=== PATIENT | female | born 1980 | race Caucasian/White ===

== ENCOUNTER 2016-06-21 09:05 | Inpatient (IN) | payer MEDICAID ==
[~2016-06-21] VITALS: Ht 170.2 cm; Wt 138.0 kg
[2016-06-24] MEDS ORDERED: OXYTOCIN 30U/ 0.9% NaCL 500ML 500 ML IV ONE (07:30)
[2016-06-24] MEDS ORDERED: NEWBORN KIT ONE (07:30)
[2016-06-24] MEDS ORDERED: D5%-LACTATED RINGERS 1,000 ML IV SCH (07:30)
[2016-06-24] MEDS ORDERED: LACTATED RINGERS 1,000 ML IV SCH (07:30)
[2016-06-24 07:37] VITALS: BP 128/69
[2016-06-24] MEDS ORDERED: MISOPROSTOL 25 MCG TABLET ONE ×3 (08:17→16:57)
[2016-06-24 08:18] LABS: HEMOGLOBIN 11.4 g/dL (11.7-16.4)
[2016-06-24] MEDS: MISOPROSTOL 25 MCG TABLET VG PRN ×3 (08:20→17:01)
== END 2016-06-24 22:00 | disposition home or self-care (01) | DRG 782 ==
LOC: LDIP 06-24 06:35
PROVIDERS: ADMIT Specialist; ATTEND Specialist
PROC: 3E0P7GC Introduction of Other Therapeutic Substance into Female Reproductive, Via Natural or Artificial Opening (ICD-10-PCS; principal; 2016-06-24)
DX: O48.0 Post-term pregnancy (principal); Z68.42 Body mass index [BMI] 45.0-49.9, adult; E66.9 Obesity, unspecified; O99.213 Obesity complicating pregnancy, third trimester; Z3A.40 40 weeks gestation of pregnancy; O09.523 Supervision of elderly multigravida, third trimester; Z87.440 Personal history of urinary (tract) infections
CPT/HCPCS: 36415; 85025; 86850; 86900; J7120

== ENCOUNTER 2018-05-27 06:28 | Inpatient (IN) | payer MEDICAID ==
[~2018-05-27] VITALS: Ht 170.2 cm; Wt 156.4 kg
[~2018-05-27 06:28] MED LIST: IBUP-1222 PO; PREN1TAB60 PO
[2018-05-27] MEDS ORDERED: NEWBORN KIT ONE ×2 (06:35→09:01)
[2018-05-27] MEDS ORDERED: D5%-LACTATED RINGERS 1,000 ML IV SCH (07:03)
[2018-05-27] MEDS ORDERED: OXYTOCIN 30U/ 0.9% NaCL 500ML 500 ML IV ONE (07:03)
[2018-05-27] MEDS: LACTATED RINGERS 1,000 ML IV SCH (07:24)
[2018-05-27] MEDS ORDERED: FENTANYL PF 100 MCG/2ML IVPush PRN (07:30)
[2018-05-27] MEDS ORDERED: FENTANYL PF 100 MCG/2ML IV PRN (07:30)
[2018-05-27] MEDS ORDERED: ONDANSETRON 2MG/ML, 2ML IVPush PRN (07:30)
[2018-05-27] MEDS ORDERED: TERBUTALINE 1 MG/ML, 1ML IVPush PRN (07:30)
[2018-05-27 07:41] LABS: BASOPHILS # (AUTO) 0.01 x10^3/uL (0-0.1); BASOPHILS % (AUTO) 0 % (0-1); EOSINOPHILS # (AUTO) 0.08 x10^3/uL (0-0.4); EOSINOPHILS % (AUTO) 1 % (1-7); LYMPHOCYTES # (AUTO) 1.68 x10^3/uL (1-3.4); LYMPHOCYTES % (AUTO) 17 % (22-44); MD NO; MEAN CORPUSCULAR HEMOGLOBIN 28.2 pg (27.0-34.8); MEAN CORPUSCULAR HGB CONC 32.4 g/dL (32.4-35.8); MEAN PLATELET VOLUME 9.4 fL (7.4-10.4); MONOCYTES # (AUTO) 0.51 x10^3/uL (0.2-0.8); MONOCYTES % (AUTO) 5 % (2-9); NEUTROPHILS # (AUTO) 7.48 x10^3/uL (1.8-6.8); NEUTROPHILS % (AUTO) 77 % (42-75); PLATELET COUNT 188 x10^3/uL (130-400); RED CELL DISTRIBUTION WIDTH 13.8 % (9.6-15.2)
[2018-05-27] MEDS ORDERED: MISOPROSTOL 25 MCG TABLET ONE (07:47)
[2018-05-27] MEDS ORDERED: MISOPROSTOL 25 MCG TABLET VG PRN (08:00)
[2018-05-27] MEDS ORDERED: OXYTOCIN 30U/ 0.9% NaCL 500ML 500 ML ONE (09:01)
[2018-05-27] MEDS ORDERED: NPH,100V5 SQ (09:47)
[2018-05-27] MEDS ORDERED: TERBUTALINE 1 MG/ML, 1ML ONE (12:51)
[2018-05-27] MEDS ORDERED: FENTANYL/BUPIV./NS/PF 250 ML EPIDCONT SCH (16:07)
[2018-05-27] MEDS ORDERED: LACTATED RINGERS 1,000 ML IVBOLUS PRN (16:30)
[2018-05-27] MEDS: FENTANYL PF 500 MCG, BUPIVACAINE/PF 0.5%, 30ML 62.5 ML in SODIUM CHLORIDE 0.9% 177.5 ML EPIDCONT SCH (16:30)
[2018-05-28] MEDS: LACTATED RINGERS 1,000 ML IV SCH ×9 (00:07→23:03)
[2018-05-28 04:10] VITALS: BP 136/90
[2018-05-28] MEDS ORDERED: OXYTOCIN 30U/ 0.9% NaCL 500ML 500 ML ONE (10:23)
[2018-05-28] MEDS: OXYTOCIN 30U/ 0.9% NaCL 500ML 500 ML IV PRN (10:43)
[2018-05-28] MEDS: FENTANYL PF 500 MCG, BUPIVACAINE/PF 0.5%, 30ML 62.5 ML in SODIUM CHLORIDE 0.9% 177.5 ML EPIDCONT SCH (16:30)
[2018-05-28 19:33] VITALS: BP 147/72
[2018-05-28] MEDS: D5%-LACTATED RINGERS 1,000 ML IV SCH (20:35)
[2018-05-29] MEDS: LACTATED RINGERS 1,000 ML IV SCH ×6 (00:07→23:03)
[2018-05-29] MEDS: D5%-LACTATED RINGERS 1,000 ML IV SCH ×3 (03:47→19:47)
[2018-05-29] MEDS ORDERED: OXYTOCIN 30U/ 0.9% NaCL 500ML 500 ML ONE ×2 (05:06→20:21)
[2018-05-29 08:54] VITALS: BP 135/71
[2018-05-29] MEDS: FENTANYL PF 500 MCG, BUPIVACAINE/PF 0.5%, 30ML 62.5 ML in SODIUM CHLORIDE 0.9% 177.5 ML EPIDCONT SCH (16:30)
[2018-05-29 20:28] LABS: BASOPHILS # (AUTO) 0.03 x10^3/uL (0-0.1); BASOPHILS % (AUTO) 0 % (0-1); EOSINOPHILS # (AUTO) 0.06 x10^3/uL (0-0.4); EOSINOPHILS % (AUTO) 1 % (1-7); LYMPHOCYTES # (AUTO) 1.79 x10^3/uL (1-3.4); LYMPHOCYTES % (AUTO) 18 % (22-44); MD NO; MEAN CORPUSCULAR HEMOGLOBIN 29.4 pg (27.0-34.8); MEAN CORPUSCULAR HGB CONC 33.6 g/dL (32.4-35.8); MEAN CORPUSCULAR VOLUME 87.5 fL (80-100); MONOCYTES # (AUTO) 0.52 x10^3/uL (0.2-0.8); MONOCYTES % (AUTO) 5 % (2-9); NEUTROPHILS # (AUTO) 7.38 x10^3/uL (1.8-6.8); NEUTROPHILS % (AUTO) 76 % (42-75); PLATELET COUNT 176 x10^3/uL (130-400); RED BLOOD COUNT 3.81 x10^6/uL (3.82-5.3); RED CELL DISTRIBUTION WIDTH 13.9 % (9.6-15.2)
[2018-05-29 20:39] LABS: ALANINE AMINOTRANSFERASE 20 U/L (12-78); ALBUMIN 2.4 g/dL (3.4-5.0); ANION GAP 10 mmol/L (5-15); CALCIUM 8.3 mg/dL (8.5-10.1); CHLORIDE 114 mmol/L (98-107); CREATININE 0.59 mg/dL (0.55-1.02)
[2018-05-29 20:41] LABS: ALKALINE PHOSPHATASE 117 U/L (45-117); BILIRUBIN,TOTAL 0.5 mg/dL (0.2-1.0); TOTAL PROTEIN 6.3 g/dL (6.4-8.2)
[2018-05-29 20:44] LABS: BILIRUBIN, DIRECT < 0.1 mg/dL (0.1-0.2)
[2018-05-29 22:00] VITALS: BP 134/80
[2018-05-29] MEDS ORDERED: LABETALOL 20 MG/4 ML IVPush PRN (22:00)
[2018-05-29 22:02] LABS: MICROSCOPIC INDICATED
[2018-05-30] MEDS: LACTATED RINGERS 1,000 ML IV SCH ×4 (00:07→17:16)
[2018-05-30 02:56] VITALS: BP 136/61
[2018-05-30] MEDS: D5%-LACTATED RINGERS 1,000 ML IV SCH ×3 (03:47→19:47)
[2018-05-30] MEDS: FENTANYL PF 500 MCG, BUPIVACAINE/PF 0.5%, 30ML 62.5 ML in SODIUM CHLORIDE 0.9% 177.5 ML EPIDCONT SCH (16:30)
[2018-05-30] MEDS ORDERED: OXYTOCIN 30U/ 0.9% NaCL 500ML 500 ML ONE (18:53)
[2018-05-30] MEDS ORDERED: BUPIVACAINE 0.25% ONE (23:05)
[2018-05-31] MEDS: LACTATED RINGERS 1,000 ML IV SCH ×4 (00:06→08:07)
[2018-05-31] MEDS ORDERED: FENTANYL/BUPIV./NS/PF 250 ML EPIDCONT SCH (00:06)
[2018-05-31] MEDS ORDERED: LACTATED RINGERS 1,000 ML IVBOLUS PRN (00:30)
[2018-05-31] MEDS ORDERED: ONDANSETRON 2MG/ML, 2ML IVPush PRN (00:30)
[2018-05-31] MEDS ORDERED: EPHEDRINE 50 MG/ML, 1ML IVPush PRN (00:30)
[2018-05-31] MEDS ORDERED: DIPHENHYDRAMINE 50 MG/ML, 1ML IVPush PRN (00:30)
[2018-05-31] MEDS ORDERED: NALOXONE 0.4 MG/ML, 1ML IVPush PRN (00:30)
[2018-05-31] MEDS ORDERED: FENTANYL PF 100 MCG/2ML ONE (00:52)
[2018-05-31] MEDS: OXYTOCIN 30U/ 0.9% NaCL 500ML 500 ML IV PRN (02:21)
[2018-05-31] MEDS ORDERED: OXYTOCIN 30U/ 0.9% NaCL 500ML 500 ML IV SCH ×2 (02:22→02:24)
[2018-05-31] MEDS ORDERED: IBUPROFEN 800 MG TABLET PO PRN (02:30)
[2018-05-31] MEDS ORDERED: ONDANSETRON 2MG/ML, 2ML IV PRN (02:30)
[2018-05-31] MEDS ORDERED: METOCLOPRAMIDE 5 MG/ML, 2ML IV PRN (02:30)
[2018-05-31] MEDS ORDERED: DOCUSATE 100 MG CAPSULE PO PRN ×2 (02:30)
[2018-05-31] MEDS ORDERED: ACETAMINOPHEN 325 MG TABLET PO PRN ×2 (02:30)
[2018-05-31] MEDS ORDERED: OXYcodone/APAP 5/325MG TABLET PO PRN ×2 (02:30)
[2018-05-31] MEDS ORDERED: GLYCERIN ADULT SUPP PR PRN (02:30)
[2018-05-31] MEDS ORDERED: BISACODYL 10 MG SUPP PR PRN (02:30)
[2018-05-31] MEDS ORDERED: MISOPROSTOL 200 MCG TABLET PR PRN (02:30)
[2018-05-31] MEDS ORDERED: IBUPROFEN 600 MG TABLET ONE (03:21)
[2018-05-31] MEDS: IBUPROFEN 600 MG TABLET PO PRN ×4 (03:24→22:48)
[2018-05-31] MEDS: D5%-LACTATED RINGERS 1,000 ML IV SCH (03:47)
[2018-05-31 04:15] VITALS: BP 139/84
[2018-05-31 07:30] VITALS: BP 130/71
[2018-05-31] MEDS: PRENATAL VIT/IRON/FA 1 EACH TABLET PO SCH ×2 (09:00→09:13)
[2018-05-31 10:42] LABS: BASOPHILS # (AUTO) 0.08 x10^3/uL (0-0.1); BASOPHILS % (AUTO) 1 % (0-1); EOSINOPHILS # (AUTO) 0.01 x10^3/uL (0-0.4); EOSINOPHILS % (AUTO) 0 % (1-7); LYMPHOCYTES # (AUTO) 1.72 x10^3/uL (1-3.4); LYMPHOCYTES % (AUTO) 10 % (22-44); MD SCAN; MEAN CORPUSCULAR HEMOGLOBIN 29.3 pg (27.0-34.8); MEAN CORPUSCULAR HGB CONC 33.5 g/dL (32.4-35.8); MEAN CORPUSCULAR VOLUME 87.4 fL (80-100); MEAN PLATELET VOLUME 9.8 fL (7.4-10.4); MONOCYTES % (AUTO) 3 % (2-9); NEUTROPHILS # (AUTO) 15.38 x10^3/uL (1.8-6.8); NEUTROPHILS % (AUTO) 87 % (42-75); PLATELET COUNT 209 x10^3/uL (130-400); RED BLOOD COUNT 3.98 x10^6/uL (3.82-5.3); RED CELL DISTRIBUTION WIDTH 14.1 % (9.6-15.2)
[2018-05-31 16:30] VITALS: BP 119/71
[2018-05-31] MEDS: FENTANYL PF 500 MCG, BUPIVACAINE/PF 0.5%, 30ML 62.5 ML in SODIUM CHLORIDE 0.9% 177.5 ML EPIDCONT SCH (16:30)
[2018-05-31 19:55] VITALS: BP 111/70
[2018-06-01 00:15] VITALS: BP 108/71
[2018-06-01] MEDS: IBUPROFEN 600 MG TABLET PO PRN (04:41)
[2018-06-01 08:00] VITALS: BP 112/75
[2018-06-01] MEDS: PRENATAL VIT/IRON/FA 1 EACH TABLET PO SCH ×2 (08:02→09:00)
[2018-06-01] MEDS ORDERED: OXYC-302 PO (12:55)
[2018-06-01] MEDS ORDERED: IBUP-1223 PO (12:56)
== END 2018-06-01 14:05 | disposition home or self-care (01) | DRG 807 ==
LOC: LDIP 06:28 → 2NW 05-31 03:53
PROVIDERS: ADMIT Obstetrics & Gynecology; ATTEND Obstetrics & Gynecology
PROC: 10S0XZZ Reposition Products of Conception, External Approach (ICD-10-PCS; 2018-05-27)
PROC: 10E0XZZ Delivery of Products of Conception, External Approach (ICD-10-PCS; principal; 2018-05-31)
PROC: 10907ZC Drainage of Amniotic Fluid, Therapeutic from Products of Conception, Via Natural or Artificial Opening (ICD-10-PCS; 2018-05-31)
PROC: 3E033VJ Introduction of Other Hormone into Peripheral Vein, Percutaneous Approach (ICD-10-PCS; 2018-05-31)
PROC: 3E0R3BZ Introduction of Anesthetic Agent into Spinal Canal, Percutaneous Approach (ICD-10-PCS; 2018-05-31)
PROC: 00HU33Z Insertion of Infusion Device into Spinal Canal, Percutaneous Approach (ICD-10-PCS; 2018-05-31)
DX: O24.424 Gestational diabetes mellitus in childbirth, insulin controlled (principal); Z37.0 Single live birth; O32.1XX0 Maternal care for breech presentation, not applicable or unspecified; O62.3 Precipitate labor; O99.214 Obesity complicating childbirth; O32.2XX0 Maternal care for transverse and oblique lie, not applicable or unspecified; E66.9 Obesity, unspecified; Z3A.38 38 weeks gestation of pregnancy
CPT/HCPCS: 36415; J7121; 76815; 80053; 81001; 82248; 82570; 82947; 82962; 83615; 84156; 84550; 85025; 86850; 86900; G0378; J3010; J3490; J2590; J7050; J7120